=== PATIENT | female | born 1930 | race Hispanic/Latino ===

== ENCOUNTER 2018-09-22 10:39 | Emergency (ER) | payer MEDICARE, OTHER ==
[2018-09-22] MEDS ORDERED: ONDANSETRON HCL 4 MG/2 ML VIAL ONE ×2 (10:44→12:12)
[2018-09-22 11:14] LABS: CREATININE 0.9 mg/dL (0.5-1.5); POTASSIUM 3.4 mmol/L (3.5-5.1)
[2018-09-22 11:19] LABS: ALBUMIN 3.2 g/dL (3.5-5.0); TOTAL PROTEIN, SERUM 6.4 g/dL (6.0-8.3)
[2018-09-22 11:21] LABS: EOSINOPHILS % (AUTO) 1.7 % (0.0-8.0); LYMPHOCYTES % (AUTO) 32.4 % (21.0-51.0); MEAN CORPUSCULAR HEMOGLOBIN 30.1 pg (27.0-33.0); MEAN CORPUSCULAR HGB CONC 34.1 g/dL (32.0-36.0); MEAN CORPUSCULAR VOLUME 88.2 fL (79-99); NEUTROPHILS % (AUTO) 59.9 % (40.0-77.0); NUCLEATED RED BLOOD CELLS 0.1 % (0.0-0.19); PLATELET COUNT (AUTO) 159 K/uL (130-400); RED BLOOD CELL COUNT(AUTO) 5.22 MIL/uL (4.00-5.50); RED CELL DISTRIBUTION WIDTH 13.7 % (11.0-15.5); WHITE BLOOD COUNT (AUTO) 9.5 K/uL (4.8-10.8)
[2018-09-22 11:41] LABS: B-TYPE NATRIURETIC PEPTIDE 68 pg/mL (0-100)
[2018-09-22 13:43] LABS: APPEARANCE,URINE Turbid (CLEAR); BILIRUBIN,URINE Negative (NEGATIVE); COLOR,URINE Yellow (YELLOW); GLUCOSE, URINE (UA) Negative (NEGATIVE); KETONES,URINE Negative (NEGATIVE); LEUKOCYTE ESTERASE ,URINE Trace (NEGATIVE); NITRATE,URINE Negative (NEGATIVE); OCCULT BLOOD,URINE Negative (NEGATIVE); PH,URINE 8.5 (5.0-8.0); PROTEIN,URINE Negative (NEGATIVE)
[2018-09-22 13:50] LABS: RBC,URINE 0-1 /HPF (0-1)
[2018-09-22 13:51] LABS: BACTERIA,URINE Moderate /HPF (None Seen); TRANSITIONAL EPI CELLS,URINE Rare /HPF (None Seen)
== END 2018-09-22 14:59 | disposition home or self-care (01) ==
LOC: EDH 10:39
CPT/HCPCS: 36415; 74176; 80053; 81001; 83690; 83880; 84484; 85025; 93005; 96374; 96376; J2405

== ENCOUNTER 2018-09-30 15:37 | Inpatient (IN) | payer MEDICARE, OTHER ==
[~2018-09-30] VITALS: Ht 157.5 cm; Wt 70.1 kg
[2018-09-30 16:26] LABS: BASOPHILS % (AUTO) 0.9 % (0.0-5.0); EOSINOPHILS % (AUTO) 2.5 % (0.0-8.0); HEMATOCRIT 40.9 % (36-48); LYMPHOCYTES % (AUTO) 39.1 % (21.0-51.0); MEAN CORPUSCULAR HEMOGLOBIN 29.6 pg (27.0-33.0); MEAN CORPUSCULAR HGB CONC 33.4 g/dL (32.0-36.0); MEAN CORPUSCULAR VOLUME 88.5 fL (79-99); MONOCYTES % (AUTO) 6.9 % (3.0-13.0); NEUTROPHILS % (AUTO) 50.6 % (40.0-77.0); PLATELET COUNT (AUTO) 196 K/uL (130-400); RED BLOOD CELL COUNT(AUTO) 4.62 MIL/uL (4.00-5.50); RED CELL DISTRIBUTION WIDTH 13.6 % (11.0-15.5); WHITE BLOOD COUNT (AUTO) 5.2 K/uL (4.8-10.8)
[2018-09-30] MEDS ORDERED: ASPIRIN 325 MG TABLET ONE (16:27)
[2018-09-30] MEDS ORDERED: NITROGLYCERIN 1GM/1 INCH PACKET TD ONE (16:28)
[2018-09-30 16:51] LABS: CREATINE KINASE, TOTAL 35 U/L (21-232); MYOGLOBIN 27 ng/mL (10-92); TROPONIN I < 0.04 ng/mL (0.00-0.06)
[2018-09-30 17:15] LABS: CREATININE 0.7 mg/dL (0.5-1.5); POTASSIUM 4.1 mmol/L (3.5-5.1)
[2018-09-30 17:19] LABS: ALBUMIN 3.1 g/dL (3.5-5.0); BILIRUBIN,TOTAL 0.5 mg/dL (0.2-1.0)
[2018-09-30 17:25] LABS: APPEARANCE,URINE Clear (CLEAR); BILIRUBIN,URINE Negative (NEGATIVE); COLOR,URINE Yellow (YELLOW); GLUCOSE, URINE (UA) Negative (NEGATIVE); KETONES,URINE Negative (NEGATIVE); LEUKOCYTE ESTERASE ,URINE Moderate (NEGATIVE); NITRATE,URINE Negative (NEGATIVE); OCCULT BLOOD,URINE Negative (NEGATIVE); PH,URINE 6.5 (5.0-8.0); PROTEIN,URINE Negative (NEGATIVE)
[2018-09-30 17:43] LABS: BACTERIA,URINE Few /HPF (None Seen); RBC,URINE None Seen /HPF (0-1)
[2018-09-30] MEDS ORDERED: CLONIDINE HCL 0.1 MG TABLET PO PRN (19:30)
[2018-09-30] MEDS ORDERED: MORPHINE SULFATE 2 MG/ML 1ML SYG IV PRN (19:30)
[2018-09-30] MEDS ORDERED: ACETAMINOPHEN 325 MG TAB PO PRN (19:30)
[2018-09-30] MEDS ORDERED: ONDANSETRON HCL 4 MG/2 ML VIAL IV PRN (19:30)
[2018-09-30] MEDS ORDERED: IOHEXOL 350 MG/ML 100ML INFUS..BTL IV ONE (21:18)
[2018-09-30 22:55] VITALS: BP 152/68
[2018-09-30] MEDS: FAMOTIDINE 20MG TAB 20 MG TAB PO SCH (23:20)
[2018-09-30] MEDS ORDERED: DULO20CA17 PO (23:39)
[2018-09-30] MEDS ORDERED: CHOL200012 PO (23:39)
[2018-09-30] MEDS ORDERED: MECL-111 PO (23:39)
[2018-09-30] MEDS ORDERED: PRAV40TA3 PO (23:39)
[2018-10-01 04:00] VITALS: BP 92/49
[2018-10-01 05:17] LABS: BASOPHILS % (AUTO) 1.2 % (0.0-5.0); EOSINOPHILS % (AUTO) 3.5 % (0.0-8.0); HEMATOCRIT 38.1 % (36-48); LYMPHOCYTES % (AUTO) 41.5 % (21.0-51.0); MEAN CORPUSCULAR HEMOGLOBIN 29.1 pg (27.0-33.0); MEAN CORPUSCULAR HGB CONC 32.9 g/dL (32.0-36.0); MEAN CORPUSCULAR VOLUME 88.5 fL (79-99); MONOCYTES % (AUTO) 8.3 % (3.0-13.0); NEUTROPHILS % (AUTO) 45.5 % (40.0-77.0); NUCLEATED RED BLOOD CELLS 0.1 % (0.0-0.19); PLATELET COUNT (AUTO) 169 K/uL (130-400); RED CELL DISTRIBUTION WIDTH 13.9 % (11.0-15.5); WHITE BLOOD COUNT (AUTO) 5.1 K/uL (4.8-10.8)
[2018-10-01 05:27] LABS: B-TYPE NATRIURETIC PEPTIDE 35 pg/mL (0-100)
[2018-10-01 08:26] VITALS: BP 126/65
[2018-10-01] MEDS ORDERED: ENOXAPARIN SODIUM 30 MG/0.3 ML SQ SCH (09:00)
[2018-10-01] MEDS: FAMOTIDINE 20MG TAB 20 MG TAB PO SCH ×2 (09:48→20:47)
[2018-10-01] MEDS: ASPIRIN 325 MG TABLET PO SCH (09:49)
[2018-10-01 12:09] VITALS: BP 112/55
[2018-10-01 16:20] VITALS: BP 127/64
[2018-10-01] MEDS ORDERED: MECLIZINE HCL 25 MG TABLET PO PRN (17:30)
[2018-10-01 19:28] VITALS: BP 131/72
[2018-10-01] MEDS ORDERED: ATORVASTATIN CALCIUM 10 MG TABLET PO SCH (21:00)
[2018-10-01 23:21] VITALS: BP 119/54
[2018-10-02 03:16] VITALS: BP 134/74
[2018-10-02 03:51] LABS: ABG BASE EXCESS 0.9 mmol/L (-2.0-3.0); ABG HCO3 25.7 mmol/L (21.0-28.0); ABG OXYGEN SATURATION 95.7 % (95.0-99.0); ABG PCO2 42 mmHg (32-45)
[2018-10-02 04:34] LABS: HEMATOCRIT 38.8 % (36-48); MEAN CORPUSCULAR HEMOGLOBIN 30.2 pg (27.0-33.0); MEAN CORPUSCULAR HGB CONC 34.4 g/dL (32.0-36.0); MEAN CORPUSCULAR VOLUME 87.9 fL (79-99); NUCLEATED RED BLOOD CELLS 0.1 % (0.0-0.19); PLATELET COUNT (AUTO) 191 K/uL (130-400); RED BLOOD CELL COUNT(AUTO) 4.41 MIL/uL (4.00-5.50); RED CELL DISTRIBUTION WIDTH 13.5 % (11.0-15.5); WHITE BLOOD COUNT (AUTO) 4.7 K/uL (4.8-10.8)
[2018-10-02 04:38] LABS: HEMOGLOBIN A1C 5.4 % (4.0-6.0)
[2018-10-02 04:53] LABS: B-TYPE NATRIURETIC PEPTIDE 39 pg/mL (0-100)
[2018-10-02 05:00] LABS: ALBUMIN 2.8 g/dL (3.5-5.0); CREATININE 0.8 mg/dL (0.5-1.5); MAGNESIUM 2.1 mg/dL (1.80-2.40); POTASSIUM 3.8 mmol/L (3.5-5.1); THYROID STIMULATING HORMONE 1.94 uIU/mL (0.36-3.74)
[2018-10-02] MEDS ORDERED: REGADENOSON 0.4 MG/5 ML PF SYG IVP SCH (08:00)
[2018-10-02 08:18] VITALS: BP 129/73
[2018-10-02] MEDS ORDERED: DULOXETINE HCL 20 MG PO SCH (09:00)
[2018-10-02] MEDS: FAMOTIDINE 20MG TAB 20 MG TAB PO SCH (09:00)
[2018-10-02] MEDS: ASPIRIN 325 MG TABLET PO SCH (09:00)
[2018-10-02] MEDS ORDERED: CHOLECALCIFEROL 2000 UNIT PO SCH (09:00)
[2018-10-02 11:53] VITALS: BP 141/69
[2018-10-02 17:00] VITALS: BP 121/67
[2018-10-02 19:22] VITALS: BP 120/61
== END 2018-10-02 19:50 | disposition home or self-care (01) | DRG 292 ==
LOC: EDH 15:37 → OBSVTOIN 18:50 → EDHIP 18:50 → 3AH 22:41
PROVIDERS: ADMIT Internal Medicine; ATTEND Internal Medicine
DX: I11.0 Hypertensive heart disease with heart failure (principal); I24.9 Acute ischemic heart disease, unspecified; B02.29 Other postherpetic nervous system involvement; J98.11 Atelectasis; I50.30 Unspecified diastolic (congestive) heart failure; E11.9 Type 2 diabetes mellitus without complications; E78.5 Hyperlipidemia, unspecified; F03.90 Unspecified dementia, unspecified severity, without behavioral disturbance, psychotic disturbance, mood disturbance, and anxiety; G47.10 Hypersomnia, unspecified; G47.33 Obstructive sleep apnea (adult) (pediatric); R00.1 Bradycardia, unspecified; E78.00 Pure hypercholesterolemia, unspecified; B02.9 Zoster without complications; I25.2 Old myocardial infarction; Z82.49 Family history of ischemic heart disease and other diseases of the circulatory system
CPT/HCPCS: 36415; 36600; 71046; 71275; 78452; 80048; 80053; 80061; 81001; 82040; 82550; 82803; 83036; 83735; 83874; 83880; 84443; 84484; 85025; 85027; 85378; 86140; 93005; 93017; 93306; 96374; 99291; A9500; J1650; J2785; Q9967